=== PATIENT | female | born 2000 | race Caucasian/White ===

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

== ENCOUNTER 2021-04-05 08:05 | Emergency (ER) | payer OTHER ==
[~2021-04-05] VITALS: Ht 167.6 cm; Wt 132.4 kg
[2021-04-05 08:09] VITALS: BP 142/65
[2021-04-05 08:53] VITALS: BP 142/65
== END 2021-04-05 08:53 | disposition home or self-care (01) ==
LOC: MED 08:05
DX: H92.02 Otalgia, left ear (principal); R68.84 Jaw pain; Z88.6 Allergy status to analgesic agent
CPT/HCPCS: 99281

== ENCOUNTER 2021-04-27 11:43 | Emergency (ER) | payer OTHER ==
[~2021-04-27] VITALS: Ht 170.2 cm; Wt 131.5 kg
[2021-04-27 11:49] VITALS: BP 131/80
--- NOTE | 2021-04-27 11:53 | NUR ---
Pt ambulated to ER bed 7 with a steady gait.
--- NOTE | 2021-04-27 11:57 | NUR ---
JIMMIE Kelly and RN at pt bedside for further evaluation.
--- NOTE | 2021-04-27 12:01 | NUR ---
20/F presents to ED with c/o right ear pain. Patient states she was seen previously for same symptoms and was dx with TMJ. Patient states the symptoms began again yesterday and states "it is getting harder to hear from my right ear." Reports taking Advil at home with no relief, right ear and jaw is tender to touch, ROM of jaw limited due to pain. Describes it as 10/10 sharp constant pain worsening with touch or movement of jaw.
[2021-04-27] MEDS ORDERED: NAPR-54 PO (12:04)
[2021-04-27] MEDS ORDERED: OFLO10SO16 RIGHT EAR (12:04)
[2021-04-27] MEDS ORDERED: KETOROLAC 30 MG/ML VIAL IM ONE (12:05)
[2021-04-27 12:20] VITALS: BP 131/80
--- NOTE | 2021-04-27 12:21 | NUR ---
Patient discharged with v/s stable. Written and verbal after care instructions given and explained. Patient alert, oriented and verbalized understanding of instructions. Ambulatory with steady gait. All questions addressed prior to discharge. ID band removed. Patient advised to follow up with PMD. Rx of Naprosyn and Ofloxacin given. Patient educated on indication of medication including possible reaction and side effects. Opportunity to ask questions provided and answered.
== END 2021-04-27 12:21 | disposition home or self-care (01) ==
LOC: MED 11:43
DX: H73.011 Bullous myringitis, right ear (principal); Z88.6 Allergy status to analgesic agent; Z79.899 Other long term (current) drug therapy
CPT/HCPCS: 96372; 99283; J1885